=== PATIENT | female | born 1970 | race Caucasian/White ===

== ENCOUNTER 2020-03-10 10:15 | Emergency (ER) | payer MEDICARE, OTHER ==
[~2020-03-10] VITALS: Ht 177.8 cm; Wt 65.8 kg
[2020-03-10] MEDS ORDERED: MECLIZINE HCL25 MG PO (14:08)
== END 2020-03-10 15:48 | disposition home or self-care (01) ==
LOC: ED 10:15
DX: T67.9XXA Effect of heat and light, unspecified, initial encounter (principal); H81.12 Benign paroxysmal vertigo, left ear; Z88.5 Allergy status to narcotic agent; X32.XXXA Exposure to sunlight, initial encounter
CPT/HCPCS: 96361; 96374; 96375; 99284-25; J1200; J2765; J7030